=== PATIENT | female | born 1960 | race Caucasian/White ===

== ENCOUNTER 2018-01-20 12:20 | Inpatient (IN) | payer BC ==
[~2018-01-20] VITALS: Ht 170.2 cm; Wt 72.6 kg
[2018-02-15] VITALS (12 sets, daily range): BP systolic 117–139; BP diastolic 61–75; PULSE 63–81; TEMP 97.8–98.4
[2018-02-15] MEDS ORDERED: SYNTHROID 0.0.025 MG PO (05:59)
[2018-02-15] MEDS ORDERED: KRILL OIL 1,001 EAC1 PO (06:09)
[2018-02-15] MEDS ORDERED: MULTIPLE VITAMI1 TA5 PO (06:30)
[2018-02-16 06:45] VITALS: BP 118/76; PULSE 76; TEMP 98.1
[2018-02-16 12:05] VITALS: BP 116/72; PULSE 70; TEMP 98.2
== END 2018-02-16 13:45 | disposition home or self-care (01) | DRG 743 ==
LOC: INPTSU 02-15 05:28 → SURG 02-15 07:30 → OB 02-15 11:50
PROVIDERS: Obstetrics & Gynecology; Urology
PROC: 0UT74ZZ Resection of Bilateral Fallopian Tubes, Percutaneous Endoscopic Approach (ICD-10-PCS; 2018-02-15)
PROC: 0UTC4ZZ Resection of Cervix, Percutaneous Endoscopic Approach (ICD-10-PCS; 2018-02-15)
PROC: 8E0W4CZ Robotic Assisted Procedure of Trunk Region, Percutaneous Endoscopic Approach (ICD-10-PCS; 2018-02-15)
PROC: 0UT9FZZ Resection of Uterus, Via Natural or Artificial Opening With Percutaneous Endoscopic Assistance (ICD-10-PCS; principal; 2018-02-15 07:30)
PROC: 0USG4ZZ Reposition Vagina, Percutaneous Endoscopic Approach (ICD-10-PCS; 2018-02-15 07:30)
PROC: 0UT24ZZ Resection of Bilateral Ovaries, Percutaneous Endoscopic Approach (ICD-10-PCS; 2018-02-15 07:30)
DX: N81.2 Incomplete uterovaginal prolapse (principal)
CPT/HCPCS: A4314; C1713; C1781; J0690; J1100; J1885; J2405; J2704; J2710; J3010; J7120

== ENCOUNTER → 2018-02-14 | Outpatient (CLI) | payer BC ==
[~2018-02-14] MED LIST: KRILL OIL 1,001 EAC1 PO; MULTIPLE VITAMI1 TA5 PO; SYNTHROID 0.0.025 MG PO
== END ==
LOC: COL.LAB 09:26
DX: Z01.89 Encounter for other specified special examinations (principal)